=== PATIENT | female | born 2000 | race Caucasian/White ===

== ENCOUNTER → 2020-03-18 | Outpatient (CLI) | payer OTHER | LOC: COL.RAD 13:54 | DX: G43.409 Hemiplegic migraine, not intractable, without status migrainosus (principal); E61.1 Iron deficiency; E55.9 Vitamin D deficiency, unspecified | CPT/HCPCS: A9585 ==

== ENCOUNTER 2022-01-10 08:59 | Day surgery (SDC) | payer OTHER ==
[~2022-01-10] VITALS: Ht 154.9 cm; Wt 66.1 kg
[2022-01-10] MEDS ORDERED: SYNTHROID0.088 MG/T PO (09:31)
[2022-01-10 09:41] VITALS: BP 121/74; PULSE 91; TEMP 98.3
[2022-01-10] MEDS ORDERED: PROTONIX 40MG T40 MG PO (10:33)
[2022-01-10 10:45] VITALS: BP 115/78; PULSE 86; TEMP 98.2
--- NOTE | 2022-01-10 10:45 | NUR ---
Pt arrived from procedure, drowsy but oriented. Vitals obtained. Verbal report obtained. Pt was assisted with ambulating from cart to chair with minimal difficulty. Warm blankets provided. Pt requested [employer] and a warm muffin. Call nguyen is within reach on side table.
[2022-01-10 11:00] VITALS: BP 116/82; PULSE 78
--- NOTE | 2022-01-10 11:00 | NUR ---
Pt is alert and oriented. She continues to eat her muffin. Denies nausea. Call nguyen remains within reach. Vitals obtained and are WNL.
[2022-01-10 11:15] VITALS: BP 118/67; PULSE 75
--- NOTE | 2022-01-10 11:15 | NUR ---
Vitals obtained. Pt ambulated to the bathroom without difficulty. Pt expressed desire to be discharged. IV was then discontinued. Catheter tip intact. Pressure bandage applied. NO redness or swelling noted. Pt denied needing assistance changing into personal clothes.
--- NOTE | 2022-01-10 11:30 | NUR ---
DC instructions and educational material was reviewed with the pt, who verbalized understanding and signed the realted paperwork. Pt was then dismissed from endo via wheelchair to the pt entrence by NATHANAEL Rojas. Pt has her personal belongings and DC packet in hand. Pt was transferred into the care of her , who is present to drive.
== END 2022-01-10 11:40 | disposition home or self-care (01) ==
LOC: SDCO 08:59
DX: K21.9 Gastro-esophageal reflux disease without esophagitis (principal); K44.9 Diaphragmatic hernia without obstruction or gangrene; K29.30 Chronic superficial gastritis without bleeding; K31.84 Gastroparesis; K58.2 Mixed irritable bowel syndrome; Z87.891 Personal history of nicotine dependence
CPT/HCPCS: J2704; J7120

== ENCOUNTER → 2022-02-03 | Outpatient (CLI) | payer OTHER ==
[~2022-02-03] MED LIST: PROTONIX 40MG T40 MG PO; SYNTHROID0.088 MG/T PO
== END ==
LOC: COL.RAD 07:44
DX: R10.13 Epigastric pain (principal)
CPT/HCPCS: A9541